=== PATIENT | male | born 1935 | race Caucasian/White ===

== ENCOUNTER 2023-05-06 18:15 | Inpatient (IN) | payer MEDICARE ==
[~2023-05-06] VITALS: Ht 165.1 cm; Wt 105.0 kg
[2023-05-06 20:25] VITALS: BP 188/86; TEMP 97.3; O2SAT 96
[2023-05-06 21:47] LABS: BASO % 0.5 % (0.0-1.0); EOS # 0.3 10^3/uL (0.0-0.5); EOS % 4.1 % (0.0-3.0); HEMATOCRIT 25.7 % (42.0-52.0); HEMOGLOBIN 8.8 g/dl (13.5-17.5); LYMPH # 1.6 10^3/uL (1.5-5.0); LYMPH % 24.3 % (24.0-44.0); MEAN CORPUSCULAR HEMOGLOBIN 31.3 pg (27.0-33.0); MEAN CORPUSCULAR HGB CONC 34.2 g/dl (32.0-36.5); MEAN CORPUSCULAR VOLUME 91.5 fl (80.0-96.0); MONO # 0.6 10^3/uL (0.0-0.8); MONO % 9.6 % (2.0-8.0); NEUTROPHILS # 3.9 10^3/uL (1.5-8.5); NEUTROPHILS % 61.2 % (36.0-66.0); PLATELET COUNT, AUTOMATED 162 10^3/uL (150-450); RED BLOOD COUNT 2.81 10^6/uL (4.30-6.10); WHITE BLOOD COUNT 6.4 10^3/uL (4.0-10.0)
[2023-05-06 22:09] LABS: ALBUMIN 2.7 G/DL (3.2-5.2); BILIRUBIN,TOTAL 0.3 MG/DL (0.3-1.2); CALCIUM LEVEL 8.5 MG/DL (8.3-10.6); CREATININE FOR GFR 2.6 MG/DL (0.70-1.30); POTASSIUM SERUM 4.4 MMOL/L (3.5-5.1); TOTAL PROTEIN 6.1 G/DL (5.7-8.2)
[2023-05-06] MEDS: METOPROLOL TARTRATE 100MG TAB PO SCH (22:57)
[2023-05-06 23:00] LABS: PTH INTACT 64.4 PG/ML (18.5-88.0)
[2023-05-06 23:15] VITALS: BP 164/80; TEMP 97; O2SAT 94
[2023-05-07] VITALS (13 sets, daily range): BP systolic 140–196; BP diastolic 60–88; TEMP 96.9–97.7; O2SAT 93–99
[2023-05-07] MEDS: DOXAZOSIN MESYLATE 1 MG TAB PO SCH ×2 (00:20→20:50)
[2023-05-07 04:08] LABS: HEMATOCRIT 26.9 % (42.0-52.0); HEMOGLOBIN 8.6 g/dl (13.5-17.5); MEAN CORPUSCULAR HEMOGLOBIN 30.4 pg (27.0-33.0); MEAN CORPUSCULAR VOLUME 95.1 fl (80.0-96.0); PLATELET COUNT, AUTOMATED 141 10^3/uL (150-450); RED BLOOD COUNT 2.83 10^6/uL (4.30-6.10); WHITE BLOOD COUNT 6.2 10^3/uL (4.0-10.0)
[2023-05-07 04:19] LABS: INR 1.27; PROTHROMBIN TIME 15.5 SECONDS (12.5-14.5)
[2023-05-07 04:26] LABS: ALBUMIN 2.6 G/DL (3.2-5.2); BILIRUBIN,TOTAL 0.3 MG/DL (0.3-1.2); CALCIUM LEVEL 8.6 MG/DL (8.3-10.6); CREATININE FOR GFR 2.6 MG/DL (0.70-1.30); POTASSIUM SERUM 4.5 MMOL/L (3.5-5.1); TOTAL PROTEIN 6.1 G/DL (5.7-8.2)
[2023-05-07] MEDS ORDERED: hydrALAZINE 20MG/ML 1ML VIAL IV ONE (05:00)
[2023-05-07] MEDS ORDERED: HOME MED LIST COMPLETE! XX SCH (06:10)
[2023-05-07] MEDS ORDERED: METO100T5 PO (06:10)
[2023-05-07] MEDS ORDERED: OMEP-173 PO (06:10)
[2023-05-07] MEDS ORDERED: ATOR1TAB21 PO (06:10)
[2023-05-07] MEDS ORDERED: DOXA1TAB41 PO (06:10)
[2023-05-07] MEDS ORDERED: FERR324T21 PO (06:10)
[2023-05-07] MEDS ORDERED: AMLO1TAB24 PO (06:10)
[2023-05-07] MEDS ORDERED: ISOS1TAB36 PO (06:10)
[2023-05-07] MEDS ORDERED: XARE15TA PO (06:10)
[2023-05-07] MEDS: METOPROLOL TARTRATE 100MG TAB PO SCH (08:22)
[2023-05-07] MEDS: ISOSORBIDE MONONITRATE 10MG TABLET PO SCH ×2 (08:23→16:04)
[2023-05-07] MEDS: hydrALAZINE 20MG/ML 1ML VIAL IV SCH ×2 (20:50→23:59)
[2023-05-07] MEDS: ACETAMINOPHEN TAB 650MG DOSE (2X325MG) PO PRN (22:49)
[2023-05-08] VITALS (7 sets, daily range): BP systolic 129–180; BP diastolic 52–80; TEMP 97.6–98.1; O2SAT 90–95
[2023-05-08] MEDS: hydrALAZINE 20MG/ML 1ML VIAL IV SCH ×5 (04:56→20:50)
[2023-05-08 05:45] LABS: INR 1.23; PROTHROMBIN TIME 15.1 SECONDS (12.5-14.5)
[2023-05-08] MEDS: ACETAMINOPHEN TAB 650MG DOSE (2X325MG) PO PRN ×2 (08:21→22:35)
[2023-05-08] MEDS: ISOSORBIDE MONONITRATE 10MG TABLET PO SCH ×2 (08:39→17:35)
[2023-05-08 12:27] LABS: HEMATOCRIT 31.9 % (42.0-52.0); MEAN CORPUSCULAR HEMOGLOBIN 30.1 pg (27.0-33.0); MEAN CORPUSCULAR HGB CONC 33.5 g/dl (32.0-36.5); MEAN CORPUSCULAR VOLUME 89.6 fl (80.0-96.0); PLATELET COUNT, AUTOMATED 120 10^3/uL (150-450); RED BLOOD COUNT 3.56 10^6/uL (4.30-6.10); WHITE BLOOD COUNT 5.9 10^3/uL (4.0-10.0)
[2023-05-08 12:28] LABS: HEMOGLOBIN 10.7 g/dl (13.5-17.5)
[2023-05-08 12:50] LABS: CALCIUM LEVEL 8.8 MG/DL (8.3-10.6); CREATININE FOR GFR 2.68 MG/DL (0.70-1.30); GLOMERULAR FILTRATION RATE 24.1 (>35); POTASSIUM SERUM 4.2 MMOL/L (3.5-5.1)
[2023-05-08 12:52] LABS: FREE T4 1.1 NG/DL (0.89-1.76)
[2023-05-08 12:53] LABS: THYROID STIMULATING HORMONE 5.802 uIU/ML (0.55-4.78)
[2023-05-08 12:55] LABS: FREE T3 3.2 PG/ML (2.3-4.2)
[2023-05-08] MEDS: DOXAZOSIN MESYLATE 1 MG TAB PO SCH (20:51)
[2023-05-08] MEDS: OMEPRAZOLE 20MG CAP PO SCH (22:35)
[2023-05-09] VITALS (7 sets, daily range): BP systolic 161–186; BP diastolic 70–84; TEMP 97.1–97.9; O2SAT 94–95
[2023-05-09] MEDS: hydrALAZINE 20MG/ML 1ML VIAL IV SCH ×2 (00:40→04:30)
[2023-05-09 06:15] LABS: HEMATOCRIT 33.8 % (42.0-52.0); HEMOGLOBIN 11.2 g/dl (13.5-17.5); MEAN CORPUSCULAR HEMOGLOBIN 30.1 pg (27.0-33.0); MEAN CORPUSCULAR HGB CONC 33.1 g/dl (32.0-36.5); MEAN CORPUSCULAR VOLUME 90.9 fl (80.0-96.0); PLATELET COUNT, AUTOMATED 135 10^3/uL (150-450); RED BLOOD COUNT 3.72 10^6/uL (4.30-6.10); WHITE BLOOD COUNT 6.1 10^3/uL (4.0-10.0)
[2023-05-09 06:23] LABS: INR 1.16; PROTHROMBIN TIME 14.4 SECONDS (12.5-14.5)
[2023-05-09 06:35] LABS: CREATININE FOR GFR 2.94 MG/DL (0.70-1.30); GLOMERULAR FILTRATION RATE 21.7 (>35); POTASSIUM SERUM 3.8 MMOL/L (3.5-5.1)
[2023-05-09] MEDS ORDERED: amLODIPine 5 MG TAB PO SCH (09:00)
[2023-05-09] MEDS: OMEPRAZOLE 20MG CAP PO SCH (09:36)
[2023-05-09] MEDS: ISOSORBIDE DIN. (ISORDIL) 30 MG TAB PO SCH ×2 (09:36→16:00)
[2023-05-09] MEDS: NICOTINE 14 MG/24 HR TRANSDERMAL TD SCH (09:38)
[2023-05-09] MEDS: ACETAMINOPHEN TAB 650MG DOSE (2X325MG) PO PRN (09:38)
[2023-05-09] MEDS ORDERED: **hydrALAZINE** 10 MG TAB PO SCH (12:00)
[2023-05-09] MEDS ORDERED: SIMETHICONE 80MG CHEW TAB PO ONE (17:55)
[2023-05-09] MEDS ORDERED: ISOSORBIDE DIN. (ISORDIL) 20 MG TAB PO ONE (17:55)
[2023-05-09] MEDS ORDERED: SIMETHICONE 80MG CHEW TAB PO PRN (18:00)
[2023-05-09] MEDS ORDERED: ISOSORBIDE MON. (IMDUR) 60MG XR TAB PO ONE (18:00)
[2023-05-09] MEDS: DOXAZOSIN MESYLATE 1 MG TAB PO SCH (20:05)
[2023-05-09] MEDS: **hydrALAZINE** 50 MG TAB PO SCH (23:43)
[2023-05-10 03:25] VITALS: BP 142/73; TEMP 97.1; O2SAT 94
[2023-05-10 05:26] VITALS: BP 151/66
[2023-05-10] MEDS: **hydrALAZINE** 50 MG TAB PO SCH (05:28)
[2023-05-10 06:19] LABS: HEMOGLOBIN 9.8 g/dl (13.5-17.5); MEAN CORPUSCULAR HEMOGLOBIN 29.5 pg (27.0-33.0); MEAN CORPUSCULAR HGB CONC 32.7 g/dl (32.0-36.5); MEAN CORPUSCULAR VOLUME 90.4 fl (80.0-96.0); PLATELET COUNT, AUTOMATED 127 10^3/uL (150-450); RED BLOOD COUNT 3.32 10^6/uL (4.30-6.10); WHITE BLOOD COUNT 5.4 10^3/uL (4.0-10.0)
[2023-05-10 06:31] LABS: INR 1.17; PROTHROMBIN TIME 14.5 SECONDS (12.5-14.5)
[2023-05-10 06:49] LABS: CALCIUM LEVEL 8.8 MG/DL (8.3-10.6); CREATININE FOR GFR 2.79 MG/DL (0.70-1.30); POTASSIUM SERUM 4.2 MMOL/L (3.5-5.1)
[2023-05-10 07:16] VITALS: BP 148/72; TEMP 98; O2SAT 92
[2023-05-10] MEDS ORDERED: NICO14PA TD (07:22)
[2023-05-10] MEDS ORDERED: DOXA1TAB91 PO (07:22)
[2023-05-10] MEDS ORDERED: HYDR50TA46 PO (07:22)
[2023-05-10] MEDS ORDERED: SELF1KIT MC ×2 (07:24→07:49)
[2023-05-10] MEDS ORDERED: AMLO10TA PO (07:46)
[2023-05-10] MEDS: OMEPRAZOLE 20MG CAP PO SCH (08:45)
[2023-05-10 08:46] VITALS: BP 148/72
[2023-05-10] MEDS: NICOTINE 14 MG/24 HR TRANSDERMAL TD SCH (08:46)
[2023-05-10] MEDS: ACETAMINOPHEN TAB 650MG DOSE (2X325MG) PO PRN (08:48)
[2023-05-10] MEDS ORDERED: DOXAZOSIN MESYLATE 1 MG TAB PO ONE (09:00)
[2023-05-10] MEDS ORDERED: ISOSORBIDE MON. (IMDUR) 60MG XR TAB PO SCH (09:00)
== END 2023-05-10 11:28 | disposition home health service (06) | DRG 687 ==
LOC: ENRESERV 19:35 → EDRESERV 19:35 → M PCU 20:29
PROVIDERS: ADMIT Family Medicine; ATTEND Family Medicine
PROC: 30233N1 Transfusion of Nonautologous Red Blood Cells into Peripheral Vein, Percutaneous Approach (ICD-10-PCS; principal; 2023-05-07)
PROC: B246ZZZ Ultrasonography of Right and Left Heart (ICD-10-PCS; 2023-05-07)
DX: C67.9 Malignant neoplasm of bladder, unspecified (principal); N17.9 Acute kidney failure, unspecified; N13.30 Unspecified hydronephrosis; D62 Acute posthemorrhagic anemia; N18.9 Chronic kidney disease, unspecified; I48.0 Paroxysmal atrial fibrillation; I12.9 Hypertensive chronic kidney disease with stage 1 through stage 4 chronic kidney disease, or unspecified chronic kidney disease; E78.5 Hyperlipidemia, unspecified; Z66 Do not resuscitate; E87.5 Hyperkalemia; R31.0 Gross hematuria; I16.0 Hypertensive urgency; I44.1 Atrioventricular block, second degree; R00.1 Bradycardia, unspecified; Z79.899 Other long term (current) drug therapy; Z79.01 Long term (current) use of anticoagulants; Z85.46 Personal history of malignant neoplasm of prostate

== ENCOUNTER → 2023-10-30 | Outpatient (REF) | payer MEDICARE ==
[~2023-10-30] MED LIST: AMLO10TA PO; AMLO1TAB24 PO; ATOR1TAB21 PO; DOXA1TAB41 PO; DOXA1TAB91 PO; FERR324T21 PO; HYDR50TA46 PO; ISOS1TAB36 PO; METO100T5 PO; NICO14PA TD; OMEP-173 PO; SELF1KIT MC; XARE15TA PO
[2023-10-30 18:50] LABS: PERCENT SATURATION 20.5 % (19.7-50.0)
== END ==
LOC: M LAB REF 17:21
PROVIDERS: ATTEND Internal Medicine Nephrology
DX: D50.9 Iron deficiency anemia, unspecified (principal)